=== PATIENT | female | born 1980 | race Hispanic/Latino ===

== ENCOUNTER 2018-02-06 12:19 | Emergency (ER) | payer OTHER ==
[~2018-02-06 12:19] MED LIST: EPIPEN 2-P0.3 MG/0.3 SC; EPIPEN 2-P0.3 MG/0.3 SQ; MEDROL4 M2 PO; PEPCID20 M1 PO; PREDNISONE10 M2 PO
--- NOTE | 2018-02-06 12:26 | ED SKIN/ALLERGY COMPLAINT ---
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 [facility] SHE MAY BE ALLERGIC TO WHEAT. PT TOOK OWN EPI PEN W/O RELIEF. ADDITIONAL EPI PEN, 50 MG BENADRYL IV AND 20 MG PEPCID IV GIVEN BY EMS WITH IMPROVEMENT IN SYMPTOMS. Triage Nurses Notes Reviewed? yes Onset: Gradual Duration: IMPROVING OVER LAST 30 MIN Timing: recent history Severity: severe Severity Numbers: 9 Location: generalized Possible Factors: ?WHEAT Modifying Factors: Improves With: antihistamine. Associated Symptoms: hives HPI: Patient is a 37 year old female presenting to the emergency Department chief complaint of diffuse hives and shortness of breath that started after she ate a sandwich prior to arrival. History of similar reaction in the past, was told that she is allergic to wheat. She was eating a sandwich on white bread which she was told that she can HAVE. Positive nausea but no vomiting. She did have sensation of her throat closing initially and administered herself an EpiPen. Patient denies any chest pain or palpitations. She reports she feels significantly better after the medications she received in the ambulance which was 20 mg IV Pepcid, 50 benadryl. Chest received an additional EpiPen. (Dmeetria Denney) Past History Medical History Any Pertinent Medical History? see below for history Neurological: NONE EENT: NONE Cardiovascular: NONE Respiratory: NONE Gastrointestinal: NONE Hepatic: NONE Renal: NONE Musculoskeletal: NONE Psychiatric: NONE Endocrine: NONE Blood Disorders: NONE Cancer(s): NONE Tetanus Vaccine: 12/20/12 Surgical History Surgical History: non-contributory Psychosocial History Who do you live with Daughter What is your primary language [place] Family History Hx Contributory? No (Demetria Denney) Review of Systems Review of Systems Constitutional: Reports: no symptoms. Comments Review of systems: See HPI, All other systems negative. Constitutional, no chills fever or weight loss HEENT: No visual changes no sore throat no congestion Cardiovascular: No chest pain ,palpitation , orthopnea or ankle swelling Skin, no jaundice no rashes Respiratory: No cough sputum or hemoptysis GI: no vomiting : No dysuria No hematuria Muscle skeletal: no back pain, no neck pain, Neurologic: No numbness no confusion, no headache Psych: No stress anxiety or depression,. Heme/endocrine: No bruising no bleeding no polyuria or polydipsia Immunology: No splenectomy or history of AIDS (Demetria Denney) Physical Exam Physical Exam General Appearance: well developed/nourished, no apparent distress, alert, awake , comfortable Comments: Well-developed well-nourished person in no acute distress HEENT: Pupils equally round and reactive to light and accommodation. Nose is atraumatic. External auditory canal and Tympanic membranes clear. Pharynx normal. No swelling or edema. Uvula midline. Clearing secretions without difficulty. No drooling. Neck: Supple, no lymphadenopathy, normal range of motion without pain or tenderness Back: Nontender Cardiovascular: Regular rate and rhythms Respiratory: Chest nontender. No respiratory distress.breath sounds clear to auscultation bilaterally Abdomen: Soft, nontender nondistended, no appreciable organomegaly. Normal bowel sounds. No ascites, rebound or guarding. Extremity: No edema, full range of motion of upper and lower extremities without difficulty or pain. Neuro: Alert oriented x3 Skin: Diffuse hive like lesions noted on the upper extremities bilaterally. Nothing noticed on the abdomen or trunk. No lesions noted on the lower extremities. Psych: Mood and affect is normal, memory and judgment is normal. (Demetria Denney) Progress Differential Diagnosis: urticaria, , ALLERGIC REACTION, ANAPHYLACTIC REACTION Plan of Care: Current Medications Sig/[place] Start time Last Medication Dose Stop Time Status Admin Sodium Chloride 1,000 ML BOLUS ONE 02/06 1230 AC 02/06 (Normal Saline 0.9%) 02/06 1429 1235 02/06/2018 4:09:07 PM patient is well-appearing and in no acute distress. Vitals are stable. Lungs clear to auscultation. No airway edema noted on inspection. Patient will be discharged home. She'll start prednisone taper tomorrow. She' ll continue Benadryl. Patient is nontoxic and compliant. Sent over refill for EpiPen. (Demetria Denney) Departure Departure Disposition: HOME OR SELF CARE Condition: Stable Clinical Impression Primary Impression: Anaphylactic reaction Qualifiers: Encounter type: initial encounter Qualified Code: T78.2XXA - Anaphylactic shock, unspecified, initial encounter Referrals: Zbigniew HARRISON,Justin Figueredo (PCP/Family) Additional Instructions: Follow-up with your primary care physician tomorrow call to make an appointment. Take prednisone taper as prescribed starting tomorrow. Continue taking Benadryl as directed for several days. Return if he develop any worsening symptoms or concerns. you were given a refill of your EpiPen. Departure Forms: Customer Survey General Discharge Information Prescriptions: Current Visit Scripts Prednisone 1 TAB PO DAILY #30 TAB 4 tabs po x 3 days, 3 tabs po x 3 days, 2 tab po x 3 days, 1 tab po x 3 days Epinephrine (Epipen 2-Lucian) 1 INJ IM ONCE PRN ANAPHYLAXIS #1 PAC Ref 1 (Demetria Denney) PA/MARKER MACHINE ATTENDANT Co-Sign Statement Statement: ED Attending supervision documentation- [X] I saw and evaluated the patient. I have also reviewed all the pertinent lab results and diagnostic results. I agree with the findings and the plan of care as documented in the PA's/MARKER MACHINE ATTENDANT's documentation. [X] I have reviewed the ED Record and agree with the PA's/MARKER MACHINE ATTENDANT's documentation. [] Additions or exceptions (if any) to the PAs/MARKER MACHINE ATTENDANT's note and plan are summarized below: [] (Lisandro HARRISON,Naga Palmer)
[2018-02-06] MEDS ORDERED: PRAVASTATIN SOD10 M2 (13:13)
[2018-02-06] MEDS ORDERED: PREDNISONE10 M2 PO (14:12)
[2018-02-06] MEDS ORDERED: EPIPEN 2-P0.3 MG/0.3 IM (14:12)
[2018-02-06 16:14] VITALS: BP 118/68
== END 2018-02-06 16:29 ==
LOC: ERH 12:19
DX: T78.2XXA Anaphylactic shock, unspecified, initial encounter (principal)
CPT/HCPCS: 96374; J2930